=== PATIENT | female | born 1955 | race Caucasian/White ===

== ENCOUNTER 2017-05-14 00:32 | Inpatient (IN) | payer OTHER ==
[~2017-05-14] VITALS: Ht 162.6 cm; Wt 124.6 kg
[2017-05-14] VITALS (8 sets, daily range): BP systolic 131–164; BP diastolic 54–78; PULSE 74–88; RESP 16–18; TEMP 96.6–99.1; O2SAT 93–99
[2017-05-14] MEDS ORDERED: ONDANSETRON HCL 4 MG/2 ML VIAL ONE ×2 (00:56→01:28)
[2017-05-14 01:10] LABS: AUTOMATED NEUTROPHIL # 6.7 TH/MM3 (1.8-7.7); BASOPHIL # 0.1 TH/MM3 (0-0.2); BASOPHIL % 0.9 % (0.0-2.0); EOSINOPHIL # 0.2 TH/MM3 (0-0.4); EOSINOPHIL % 2.8 % (0.0-4.0); HEMATOCRIT 29.9 % (35.0-46.0); HEMO FLAGS DIFF FINAL; LYMPH % 14.3 % (9.0-44.0); LYMPHOCYTE # 1.3 TH/MM3 (1.0-4.8); MEAN CELL VOLUME 89.2 FL (80.0-100.0); MEAN CORPUSCULAR HEMOGLOBIN 28.9 PG (27.0-34.0); MEAN CORPUSCULAR HGB CONC 32.4 % (32.0-36.0); MONO % 6.6 % (0.0-8.0); NEUT % 75.4 % (16.0-70.0); PLATELET COUNT 204 TH/MM3 (150-450); RED BLOOD COUNT 3.35 MIL/MM3 (4.00-5.30); RED CELL DISTRIBUTION WIDTH 14.4 % (11.6-17.2); WHITE BLOOD COUNT 8.8 TH/MM3 (4.0-11.0)
[2017-05-14] MEDS ORDERED: ceFAZolin 2 GM PREMIX 50 ML IV STA (01:11)
[2017-05-14] MEDS ORDERED: LIDOCAINE 1%/EPINEPHrine 1:100,000 SOLN 50 ML VIAL OTHER ONE (01:15)
[2017-05-14] MEDS ORDERED: ONDANSETRON HCL 4 MG/2 ML VIAL IV PUSH ONE (01:15)
[2017-05-14] MEDS ORDERED: MISCELLANEOUS NURSING INFORMATION XX SCH (01:15)
[2017-05-14] MEDS ORDERED: SODIUM CHLORIDE 0.9% FLUSH 10 ML FLUSH IV FLUSH PRN (01:15)
[2017-05-14] MEDS ORDERED: MORPHINE SULFATE 4 MG/ML INJ IV PUSH PRN ×2 (01:15)
[2017-05-14] MEDS ORDERED: CHLORHEXIDINE GLUCONATE 2 % 1 PACK (2 CLOTHS) TOP PRN (01:15)
[2017-05-14 01:22] LABS: APTT (PATIENT) 28.2 SEC (24.3-30.1); INTERNATIONAL NORMALIZED RATIO 1.2 RATIO; PROTHROMBIN TIME - PATIENT 13.6 SEC (9.8-11.6)
[2017-05-14 01:30] LABS: I-STAT POTASSIUM 4.3 MMOL/L (3.5-4.9)
--- NOTE | 2017-05-14 02:27 | PD ---
Physical Exam Date Seen by Provider: May 14, 2017 Time Seen by Provider: 02:23 Narrative Skin: The patient has a very large gaping avulsion laceration to the left lower leg. This is just below the knee. The laceration measures approximately 14 cm. Venous bleeders has been ligated prior to my evaluation by the ER physician. Data Data Last Documented VS Vital Signs Date Time Temp Pulse Resp B/P (MAP) Pulse Ox O2 Delivery O2 Flow Rate FiO2 05/14/17 00:30 97 21 Orders Orders Ondansetron Inj (Zofran Inj) (05/14/17 00:56) I-Stat Profile (05/14/17 00:58) I-Stat Creatinine (05/14/17 00:58) Complete Blood Count With Diff (05/14/17 00:58) Prothrombin Time / Inr (Pt) (05/14/17 00:58) Act Partial Throm Time (Ptt) (05/14/17 00:58) Type And Screen (05/14/17 00:58) Iv Access Insert/Monitor (05/14/17 00:58) Ecg Monitoring (05/14/17 00:58) Oximetry (05/14/17 00:58) Oxygen Administration (05/14/17 00:58) Cefazolin 2 Gm Premix (Ancef 2 Gm Premix (05/14/17 01:11) Ondansetron Inj (Zofran Inj) (05/14/17 01:15) Lidocai-Epi 1%-1:100,000 Inj (Xylocaine- (05/14/17 01:15) Admit To Inpatient (05/14/17 ) Vital Signs (Adult) RANDI.QSHIFT (05/14/17 01:10) Intake + Output RANDI.Q8H (05/14/17 01:10) Instruction (05/14/17 01:10) Complete Blood Count With Diff (05/15/17 06:00) Basic Metabolic Panel (Bmp) (05/15/17 06:00) Sodium Chloride 0.9% Flush (Ns Flush) (05/14/17 01:15) Morphine Inj (Morphine Inj) (05/14/17 01:15) ^ Initiate Protocol (05/14/17 01:10) Instruction (05/14/17 01:10) Misc Nursing Information (05/14/17 01:15) Chlorhexidine 2% Cloth (Chlorhexidine 2% (05/14/17 01:15) Mrsa Pcr Surveillance (05/14/17 01:10) Inpatient Certification (05/14/17 ) Morphine Inj (Morphine Inj) (05/14/17 01:15) Ondansetron Inj (Zofran Inj) (05/14/17 01:28) Knee, Complete (4vws) (05/14/17 ) Admit Order (Ed Use Only) (05/14/17 ) Labs Laboratory Tests Test 05/14/17 00:50 White Blood Count 8.8 TH/MM3 Red Blood Count 3.35 MIL/MM3 Hemoglobin 9.7 GM/DL Bedside Hemoglobin 10.5 G/DL Hematocrit 29.9 % Bedside Hematocrit 31.0 % Mean Corpuscular Volume 89.2 FL Mean Corpuscular Hemoglobin 28.9 PG Mean Corpuscular Hemoglobin Concent 32.4 % Red Cell Distribution Width 14.4 % Platelet Count 204 TH/MM3 Mean Platelet Volume 9.0 FL Neutrophils (%) (Auto) 75.4 % Lymphocytes (%) (Auto) 14.3 % Monocytes (%) (Auto) 6.6 % Eosinophils (%) (Auto) 2.8 % Basophils (%) (Auto) 0.9 % Neutrophils # (Auto) 6.7 TH/MM3 Lymphocytes # (Auto) 1.3 TH/MM3 Monocytes # (Auto) 0.6 TH/MM3 Eosinophils # (Auto) 0.2 TH/MM3 Basophils # (Auto) 0.1 TH/MM3 CBC Comment DIFF FINAL Differential Comment Prothrombin Time 13.6 SEC Prothromb Time International Ratio 1.2 RATIO Activated Partial Thromboplast Time 28.2 SEC Bedside Sodium 138 MMOL/L Bedside Potassium 4.3 MMOL/L Bedside Chloride 101 MMOL/L Bedside Blood Urea Nitrogen 41 MG/DL Bedside Creatinine 1.8 MG/DL Bedside Glucose 364 MG/DL MDM Medical Record Reviewed: Yes Supervised Visit with ANNETTE: Yes Differential Diagnosis MDM: High Differential diagnoses: Fracture, sprain, strain, dislocation, contusion, neurovascular injury Narrative Course Patient's laceration is approximated in a large bulky pressure dressing was applied. Procedures Procedure Narrative LACERATION LOCATION: Left lower leg below the knee LENGTH: 16 cm NUMBER OF STITCHES/SOUMYA: 13 REPAIR: The area of the laceration was prepped with Betadine and sterilely draped. The laceration was infiltrated with 1% lidocaine with epinephrine. The wound was copiously irrigated and explored without evidence of foreign body , tendon injury or neurovascular injury. Venous bleeders or ligated with 4-0 Vicryl. The wound edges are reinforced using benzoin and Steri-Strips The wound was closed using 3-0 proline. This was a single layer repair. A sterile pressure dressing was applied. The patient was advised to keep the dressing clean and dry. Patient tolerated the procedure well. Condition: Stable Brian Tucker May 14, 2017 02:27
[2017-05-14] MEDS ORDERED: XARE15TA PO (02:40)
--- NOTE | 2017-05-14 02:50 | RADRPT ---
EXAM DATE/TIME: 05/14/2017 02:27 [place] COMPARISON: No previous studies available for comparison. INDICATIONS : Patient fell today and has laceration anteriorly to proximal tib/fib just below knee. Patient also pérez s bruising to patellar region and complains of left knee pain. MEDICAL HISTORY : None. SURGICAL HISTORY : None. ENCOUNTER: Initial ACUITY: 1 day PAIN SCORE: 3/10 LOCATION: Left Knee FINDINGS: Oblique transverse fracture seen through the mid zone of the patella. There is approximately 24 mm of separation of the fracture fragments. There is mild nondisplaced comminution of the more superior fr acture fragment. Mild lateral compartment osteoarthritis noted. There is atherosclerosis of the popliteal artery. CONCLUSION: Acute fracture of the patella as above with considerable separation of the fracture fragments. Berny Bansal MD on May 14, 2017 at 2:47 Board Certified Radiologist. This report was verified electronically.
--- NOTE | 2017-05-14 06:13 | PD ---
HPI Chief Complaint: Trauma (Alert) Time Seen by Provider: 00:44 Travel History International Travel<30 days: No Contact w/Intl Traveler<30days: No History of Present Illness HPI This is a patient who presents to the emergency department having had a fall. She tripped over a carpet and she fell her left knee twist. She felt a pop and then landed on the ground. She had a large amount of bleeding from her knee. When EMS arrived they estimated about 500 cc of blood loss. They were unable to get bleeding controlled from a wound on her leg so they applied a tourniquet and they transported her here. They estimated the tourniquet time was approximately an hour. Patient does report some moderate severity constant pain in her left knee, worse with movement, improved with rest. She did not hit her head and denies any other injuries. PFSH Past Medical History Cancer: No Cardiovascular Problems: Yes Congestive Heart Failure: Yes Diabetes: Yes (type 2) Patient Takes Glucophage: No Endocrine: Yes Genitourinary: Yes Musculoskeletal: No Neurologic: No Psychiatric: No Reproductive: No Respiratory: No ?: Not Social History Substance Use: No Allergies-Medications (Allergen,Severity, Reaction): Coded Allergies: Penicillins (Verified Allergy, Unknown, 05/14/17) tetracycline (Verified Allergy, Unknown, 05/14/17) Reported Meds & Prescriptions Reported Meds & Active Scripts Active Reported Xarelto (Rivaroxaban) 15 Mg Tab 15 Mg PO DAILY Review of Systems Except as stated in HPI: all other systems reviewed are Neg Physical Exam Narrative GENERAL:Well appearing, no acute distress SKIN: 16 cm laceration on the anterior left lower extremity distal to the knee with underlying adipose tissue. There is a small area laterally that has a bleeding arterial. HEAD: Atraumatic. Normocephalic. EYES: Pupils equal and round. No injection or drainage. ENT: Moist mucous membranes NECK: Trachea midline. CARDIOVASCULAR: Regular rate and rhythm. No murmur appreciated. RESPIRATORY: Clear to auscultation. Breath sounds equal bilaterally. GASTROINTESTINAL: Abdomen soft, non-tender, nondistended. MUSCULOSKELETAL: Large effusion of the left knee. NEUROLOGICAL: Awake and alert. No obvious cranial nerve deficits. Moving all extremities. PSYCHIATRIC: Appropriate mood and affect; insight and judgment normal. Data Data Last Documented VS Vital Signs Date Time Temp Pulse Resp B/P (MAP) Pulse Ox O2 Delivery O2 Flow Rate FiO2 05/14/17 00:30 97 21 Orders Orders Ondansetron Inj (Zofran Inj) (05/14/17 00:56) I-Stat Profile (05/14/17 00:58) I-Stat Creatinine (05/14/17 00:58) Complete Blood Count With Diff (05/14/17 00:58) Prothrombin Time / Inr (Pt) (05/14/17 00:58) Act Partial Throm Time (Ptt) (05/14/17 00:58) Type And Screen (05/14/17 00:58) Iv Access Insert/Monitor (05/14/17 00:58) Ecg Monitoring (05/14/17 00:58) Oximetry (05/14/17 00:58) Oxygen Administration (05/14/17 00:58) Cefazolin 2 Gm Premix (Ancef 2 Gm Premix (05/14/17 01:11) Ondansetron Inj (Zofran Inj) (05/14/17 01:15) Lidocai-Epi 1%-1:100,000 Inj (Xylocaine- (05/14/17 01:15) Admit To Inpatient (05/14/17 ) Vital Signs (Adult) RANDI.QSHIFT (05/14/17 01:10) Intake + Output RANDI.Q8H (05/14/17 01:10) Instruction (05/14/17 01:10) Complete Blood Count With Diff (05/15/17 06:00) Basic Metabolic Panel (Bmp) (05/15/17 06:00) Sodium Chloride 0.9% Flush (Ns Flush) (05/14/17 01:15) Morphine Inj (Morphine Inj) (05/14/17 01:15) ^ Initiate Protocol (05/14/17 01:10) Instruction (05/14/17 01:10) Misc Nursing Information (05/14/17 01:15) Chlorhexidine 2% Cloth (Chlorhexidine 2% (05/14/17 01:15) Mrsa Pcr Surveillance (05/14/17 01:10) Inpatient Certification (05/14/17 ) Morphine Inj (Morphine Inj) (05/14/17 01:15) Ondansetron Inj (Zofran Inj) (05/14/17 01:28) Knee, Complete (4vws) (05/14/17 ) Admit Order (Ed Use Only) (05/14/17 ) Labs Laboratory Tests Test 05/14/17 00:50 White Blood Count 8.8 TH/MM3 Red Blood Count 3.35 MIL/MM3 Hemoglobin 9.7 GM/DL Bedside Hemoglobin 10.5 G/DL Hematocrit 29.9 % Bedside Hematocrit 31.0 % Mean Corpuscular Volume 89.2 FL Mean Corpuscular Hemoglobin 28.9 PG Mean Corpuscular Hemoglobin Concent 32.4 % Red Cell Distribution Width 14.4 % Platelet Count 204 TH/MM3 Mean Platelet Volume 9.0 FL Neutrophils (%) (Auto) 75.4 % Lymphocytes (%) (Auto) 14.3 % Monocytes (%) (Auto) 6.6 % Eosinophils (%) (Auto) 2.8 % Basophils (%) (Auto) 0.9 % Neutrophils # (Auto) 6.7 TH/MM3 Lymphocytes # (Auto) 1.3 TH/MM3 Monocytes # (Auto) 0.6 TH/MM3 Eosinophils # (Auto) 0.2 TH/MM3 Basophils # (Auto) 0.1 TH/MM3 CBC Comment DIFF FINAL Differential Comment Prothrombin Time 13.6 SEC Prothromb Time International Ratio 1.2 RATIO Activated Partial Thromboplast Time 28.2 SEC Bedside Sodium 138 MMOL/L Bedside Potassium 4.3 MMOL/L Bedside Chloride 101 MMOL/L Bedside Blood Urea Nitrogen 41 MG/DL Bedside Creatinine 1.8 MG/DL Bedside Glucose 364 MG/DL [facility] Medical Screen Exam Complete: Yes Emergency Medical Condition: Yes Interpretation(s) Afebrile, hypertensive Anemia Renal insufficiency X-ray: Acute fracture of the patella with considerable separation or fracture fragments. Laceration anterior to the along the proximal tibia-fibula below the knee joint Differential Diagnosis Laceration, hemorrhage, patellar fracture, knee dislocation, vascular injury Narrative Course This is a patient who presents to the emergency department having had a mechanical fall twisting her left knee. She felt a pop at the time of the fall. It appears that she spontaneously fractured her patella as well as sustained a laceration anterior to the proximal tibia along the left knee. Notably don't think this is an open fracture. The laceration is distal to the patella and on examination of the laceration was fairly superficial with mostly adipose tissue exposed. Pt was given ancef given the nature of the wound. On arrival in the emergency department I took down the patient's tourniquet and I applied direct pressure to a bleeding arterial along the medial aspect of the wound. I placed a [id number] stitch with absorbable sutures which led to hemostasis. I had the physician accounts payable assistant repair the remainder of the laceration. Patient was placed in a knee immobilizer and will be placed in observation under the trauma service. Procedures Procedure Narrative LACERATION LOCATION: Left lower extremity LENGTH: 1 cm NUMBER OF STITCHES/SOUMYA: 1 REPAIR: The laceration was infiltrated with 5 cc of lidocaine. The wound was copiously irrigated and explored without evidence of foreign body, tendon injury or neurovascular injury. The wound was closed using 3-0 Vicryl. This was a single layer repair. A sterile dressing was applied. The patient was advised to keep the dressing clean and dry. Patient tolerated the procedure well. Trauma Alert - Level Two Trauma Alert Level Two: Full trauma team activate, Patient evaluated, Trauma surgeon called Time Surgeon Called: 00:25 Diagnosis Diagnosis: Primary Impression: Patellar fracture Qualified Codes: S82.092A - Other fracture of left patella, initial encounter for closed fracture Additional Impression: Laceration of leg Qualified Codes: S81.812A - Laceration without foreign body, left lower leg, initial encounter Condition: Stable Yu Alonzo MD May 14, 2017 06:13
[2017-05-14] MEDS ORDERED: DEXTROSE 50% IN WATER 50 ML VIAL(D50) IV PUSH PRN (07:30)
[2017-05-14] MEDS ORDERED: GLUCAGON 1 MG/ML VIAL OTHER PRN (07:30)
--- NOTE | 2017-05-14 07:54 | PD.ORT.PN ---
Subjective Subjective Remarks s/p fall left knee pain. takes xarelto 20mg daily for previous DVT. skin tear that was sutured in ER over left knee. Objective Vitals Vital Signs Date Time Temp Pulse Resp B/P (MAP) Pulse Ox O2 Delivery O2 Flow Rate FiO2 05/14/17 04:00 96.6 74 18 143/65 (91) 99 05/14/17 03:53 05/14/17 02:39 99 Room Air 05/14/17 02:39 99 Room Air 05/14/17 02:35 78 18 137/67 (90) 99 Room Air 05/14/17 00:30 97 21 I/O 05/13/17 05/13/17 05/13/17 05/14/17 05/14/17 05/14/17 07:00 15:00 23:00 07:00 15:00 23:00 Intake Total 50 ml Balance 50 ml Intake IV Total 50 ml # Voids 0 Result Diagram: 05/14/17 0050 Other Results Laboratory Tests Test 05/14/17 00:50 Prothromb Time International Ratio 1.2 RATIO Prothrombin Time 13.6 SEC (9.8-11.6) Imaging Last 24 hours Impressions Knee X-Ray 05/14/17 0000 Signed Impressions: Service Date/Time: Sunday, May 14, 2017 02:27 - CONCLUSION: Acute fracture of the patella as above with considerable separation of the fracture fragments. Berny Bansal MD Objective Remarks LLE: +knee brace. NVI. wound visualized. large transverse skin tear approx 2- 3in distal to patella. skin tear is approx 8cm in length. fatty tissue visualized. Assessment & Plan Assessment and Plan 1) Left Patella Fx -npo -surgery today -sign consents Anton Yeager May 14, 2017 07:54
[2017-05-14] MEDS: DOCUSATE SODIUM 50 MG/SENNA 8.6 MG TAB PO SCH ×2 (09:00→21:00)
[2017-05-14] MEDS ORDERED: ACETAMINOPHEN/HYDROcodone 325 MG/5 MG TAB PO PRN (09:00)
[2017-05-14] MEDS ORDERED: AMLO10TA2 PO (09:18)
[2017-05-14] MEDS ORDERED: LABE100T2 PO (09:18)
[2017-05-14] MEDS ORDERED: XARE20TA PO (09:22)
[2017-05-14] MEDS: INSULIN ASPART SUPPLEMENTAL SCALE SQ SCH ×4 (09:26→22:07)
[2017-05-14] MEDS: FAMOTIDINE 20 MG TAB PO SCH ×2 (09:26→21:00)
[2017-05-14] MEDS: ACETAMINOPHEN/HYDROcodone 325 MG/7.5 MG TAB PO PRN ×3 (09:35→19:56)
[2017-05-14] MEDS ORDERED: ONDANSETRON HCL 4 MG/2 ML VIAL IV PUSH PRN (10:00)
--- NOTE | 2017-05-14 10:56 | HHI.PR ---
Subjective Subjective Notes PTD: 0 Patient lying in bed. No distress noted. Patient complains of pain to left knee. Pain medications are working to control pain. Patient states "I'm okay. It was scarey. It is all my fault." Objective Vitals/I&O Vital Signs Date Time Temp Pulse Resp B/P (MAP) Pulse Ox O2 Delivery O2 Flow Rate FiO2 05/14/17 08:00 98.1 83 17 151/63 (92) 99 05/14/17 02:39 Room Air 05/14/17 00:30 21 Labs Laboratory Tests Test 05/14/17 00:50 White Blood Count 8.8 Red Blood Count 3.35 Hemoglobin 9.7 Bedside Hemoglobin 10.5 Hematocrit 29.9 Bedside Hematocrit 31.0 Mean Corpuscular Volume 89.2 Mean Corpuscular Hemoglobin 28.9 Mean Corpuscular Hemoglobin Concent 32.4 Red Cell Distribution Width 14.4 Platelet Count 204 Mean Platelet Volume 9.0 Neutrophils (%) (Auto) 75.4 Lymphocytes (%) (Auto) 14.3 Monocytes (%) (Auto) 6.6 Eosinophils (%) (Auto) 2.8 Basophils (%) (Auto) 0.9 Neutrophils # (Auto) 6.7 Lymphocytes # (Auto) 1.3 Monocytes # (Auto) 0.6 Eosinophils # (Auto) 0.2 Basophils # (Auto) 0.1 CBC Comment DIFF FINAL Differential Comment Prothrombin Time 13.6 Prothromb Time International Ratio 1.2 Activated Partial Thromboplast Time 28.2 Bedside Sodium 138 Bedside Potassium 4.3 Bedside Chloride 101 Bedside Blood Urea Nitrogen 41 Bedside Creatinine 1.8 Bedside Glucose 364 Radiology Last Impressions Knee X-Ray 05/14/17 0000 Signed Impressions: Service Date/Time: Sunday, May 14, 2017 02:27 - CONCLUSION: Acute fracture of the patella as above with considerable separation of the fracture fragments. Berny Bansal MD Narrative Exam GENERAL: This is a 62-year-old female lying in bed. No distress noted. SKIN: Warm and dry. HEAD: Atraumatic. Normocephalic. EYES: PERRLA ENT: No nasal bleeding or discharge. Mucous membranes pink and moist. NECK: Trachea midline. No JVD. CARDIOVASCULAR: Regular rate and rhythm. RESPIRATORY: No accessory muscle use. Lungs are clear to auscultation. Breath sounds equal bilaterally. No distress or dyspnea. GASTROINTESTINAL: BS + x 4 quads. Abdomen soft, non-tender, nondistended. MUSCULOSKELETAL: Extremities without cyanosis, or edema. LEFT knee dressing and CKS in place . + peripheral pulses x 4 extremities. Warm with good capillary refill and sensation. MAEW. NEUROLOGICAL: Awake and alert. Normal speech and pattern. A/P Problem List: (1) Patellar fracture ICD Codes: S82.009A - Unspecified fracture of unspecified patella, initial encounter for closed fracture Status: Acute (2) Laceration of leg ICD Codes: S81.819A - Laceration without foreign body, unspecified lower leg, initial encounter Status: Acute Assessment and Plan [place]: This is a 62-year-old female who sustained a fall. She tripped over her carpet, and twisted her knee and fell. She was bleeding profusely from her left knee. A tourniquet was applied en route. INJURIES: LEFT knee lac (henrry) LEFT patella fx PMHx: CAD, CHF, DM DVT (On xarelto) Procedures: 05/15: SX KNEE Consults: Orthopedics. Case management Diet: ADA diet. Tolerating po diet. Encourage good po intake with each meal. Pulmonary: Encourage good pulmonary toileting. IS at bedside and pt encouraged to use. Rationale for use explained to patient, and verbalized understanding. PAIN Management: [place] 5-7.5 mg q 4h. Morphine 2 mg q 3h. Activity: BR. (Knee immobilizer)PT and OT ordered. GI prophylaxis: Pepcid BID. Bowel regimen: Colace and MOM. Lactulose. LBM: 0 DVT prophylaxis: Mechanical VTE with SCDs. Chemical management with Lovenox 30 BID SQ. DC Planning: Case management consulted for assistance with final discharge disposition. Emotional support provided to patient and family at bedside and plan of care discussed. Discussed with RN at bedside. Patient is hemodynamically stable and being managed on the med/surg floor. The trauma team will round each day, and evaluate plan of care on a daily basis. LEFT knee lac (henrry) LEFT patella fx Orthopedics consulted and assisting in management and care CKS Awaiting weight bearing status form ortho Pain management PT and OT ordered Lovenox 30 mg x 1 dose tonight Plan for OR tomorrow HTN Vitals every 4 hours Resume home medications Labetalol Norvasc DM ADA diet Accuchecks AC HS SSI - medium Problem Qualifiers (1) Patellar fracture: Qualified Codes: S82.092A - Other fracture of left patella, initial encounter for closed fracture (2) Laceration of leg: Qualified Codes: S81.812A - Laceration without foreign body, left lower leg, initial encounter Muriel Sylvester May 14, 2017 10:56
[2017-05-14] MEDS ORDERED: ENOXAPARIN SODIUM 30 MG/0.3 ML SYRINGE SQ ONE (16:15)
--- NOTE | 2017-05-14 17:24 | HHI.HP ---
History of Present Illness Primary Care Physician Unknown Admission Diagnosis laceration, hematoma Diagnoses: History of Present Illness 62-year-old female on xarelto TO FOR DVT. PATIENT YESTERDAY FELL AND SUSTAINED A MID TIB-FIB open WOUND. BLEEDING WAS NOT CONTROLLED a TOURNIQUET WAS APPLIED AND PATIENT WAS BROUGHT HERE A LEVEL II TRAUMA ALERT. THE BLEEDING WAS STOPPED BY THE EM ER PHYSICIAN WITH A [id number] SUTURE AND THE OPEN WOUND WAS THEN CLOSED. FOLLOW-UP CHEST X-RAY SHOWS a PATELLA FRACTURE, the wound HOWEVER HE IS ABOUT 3 INCHES AWAY FROM THE PATELLA. At time of my exam the knee is immobilize and dressing applied ,patient is neurologically intact hemodynamically normal with good neurovascular exam. Review of Systems Constitutional: DENIES: Diaphoretic episodes, Fatigue, Fever, Weight gain, Weight loss, Chills, Dizziness, Change in appetite, Night Sweats Endocrine: DENIES: Abnorml menstrual pattern, Heat/cold intolerance, Polydipsia , Polyuria, Polyphagia Eyes: DENIES: Blurred vision, Diplopia, Eye inflammation, Eye pain, Vision loss , Photosensitivity, Double Vision Ears, nose, mouth, throat: DENIES: Tinnitus, Hearing loss, Vertigo, Nasal discharge, Oral lesions, Throat pain, Hoarseness, Ear Pain, Running Nose, Epistaxis, Sinus Pain, Toothache, Odynophagia Respiratory: DENIES: Apneas, Cough, Snoring, Wheezing, Hemoptysis, Sputum production, Shortness of breath Gastrointestinal: DENIES: Abdominal pain, Black stools, Bloody stools, Constipation, Diarrhea, Nausea, Vomiting, Difficulty Swallowing, Anorexia Genitourinary: DENIES: Abnormal vaginal bleeding, Dysmenorrhea, Dyspareunia, Sexual dysfunction, Urinary frequency, Urinary incontinence, Urgency, Hematuria , Dysuria, Nocturia, Vaginal discharge Musculoskeletal: DENIES: Joint pain, Muscle aches, Stiffness, Joint Swelling, Back pain, Neck pain Integumentary: COMPLAINS OF: Abnormal pigmentation, Pruritus, Rash, Nail changes, Breast masses, Breast skin changes, Nipple discharge Immunologic/allergic: DENIES: Eczema, Urticaria Psychiatric: DENIES: Anxiety, Confusion, Mood changes, Depression, Hallucinations, Agitation, Suicidal Ideation, Homicidal Ideation, Delusions Past Family Social History Allergies: Coded Allergies: Penicillins (Verified Allergy, Unknown, 05/14/17) tetracycline (Verified Allergy, Unknown, 05/14/17) Past Medical History DVT, diabetes Past Surgical History none Family History none Social History no drugs Physical Exam Vital Signs Vital Signs Date Time Temp Pulse Resp B/P (MAP) Pulse Ox O2 Delivery O2 Flow Rate FiO2 05/14/17 16:00 98.8 86 18 146/54 (84) 93 05/14/17 12:00 98.7 83 17 139/59 (85) 96 05/14/17 08:00 98.1 83 17 151/63 (92) 99 05/14/17 04:00 96.6 74 18 143/65 (91) 99 05/14/17 03:53 05/14/17 02:39 99 Room Air 05/14/17 02:39 99 Room Air 05/14/17 02:35 78 18 137/67 (90) 99 Room Air 05/14/17 00:30 97 21 Physical Exam GENERAL: This is a well-nourished, well-developed patient, in no apparent distress. SKIN: No rashes, ecchymoses or lesions. Cool and dry. HEAD: Atraumatic. Normocephalic. No temporal or scalp tenderness. EYES: Pupils equal round and reactive. ENT: Nose without bleeding, Airway patent. NECK: Trachea midline. No JVD or lymphadenopathy. Supple, nontender, no meningeal signs. CARDIOVASCULAR: Regular rate and rhythm without murmurs, gallops, or rubs. RESPIRATORY: Clear to auscultation. Breath sounds equal bilaterally. No wheezes , rales, or rhonchi. GASTROINTESTINAL: Abdomen soft, non-tender, No guarding. MUSCULOSKELETAL: left tib fib open wound- NEUROLOGICAL: Awake and alert. Cranial nerves II through XII intact. Motor and sensory grossly within normal limits. Five out of 5 muscle strength in all muscle groups. Normal speech. Laboratory Laboratory Tests Test 05/14/17 00:50 White Blood Count 8.8 Red Blood Count 3.35 Hemoglobin 9.7 Bedside Hemoglobin 10.5 Hematocrit 29.9 Bedside Hematocrit 31.0 Mean Corpuscular Volume 89.2 Mean Corpuscular Hemoglobin 28.9 Mean Corpuscular Hemoglobin Concent 32.4 Red Cell Distribution Width 14.4 Platelet Count 204 Mean Platelet Volume 9.0 Neutrophils (%) (Auto) 75.4 Lymphocytes (%) (Auto) 14.3 Monocytes (%) (Auto) 6.6 Eosinophils (%) (Auto) 2.8 Basophils (%) (Auto) 0.9 Neutrophils # (Auto) 6.7 Lymphocytes # (Auto) 1.3 Monocytes # (Auto) 0.6 Eosinophils # (Auto) 0.2 Basophils # (Auto) 0.1 CBC Comment DIFF FINAL Differential Comment Prothrombin Time 13.6 Prothromb Time International Ratio 1.2 Activated Partial Thromboplast Time 28.2 Bedside Sodium 138 Bedside Potassium 4.3 Bedside Chloride 101 Bedside Blood Urea Nitrogen 41 Bedside Creatinine 1.8 Bedside Glucose 364 Result Diagram: 05/14/17 0050 Caprini VTE Risk Assessment Caprini VTE Risk Assessment: No/Low Risk (score <= 1) Caprini Risk Assessment Model Point Value = 1 Point Value = 2 Point Value = 3 Point Value = 5 Age 41-60 Minor surgery BMI > 25 kg/m2 Swollen legs Varicose veins or History of unexplained or recurrent spontaneous Oral contraceptives or hormone replacement Sepsis (< 1 month) Serious lung disease, including pneumonia (< 1 month) Abnormal pulmonary function Acute myocardial infarction Congestive heart failure (< 1 month) History of inflammatory bowel disease Medical patient at bed rest Age 61-74 Arthroscopic surgery Major open surgery (> 45 min) Laparoscopic surgery (> 45 min) Malignancy Confined to bed (> 72 hours) Immobilizing plaster cast Central venous access Age >= 75 History of VTE Family history of VTE Factor V Leiden Prothrombin [id number] Lupus anticoagulant Anticardiolipin antibodies Elevated serum homocysteine Heparin-induced thrombocytopenia Other congenital or acquired thrombophilia Stroke (< 1 month) Elective arthroplasty Hip, pelvis, or leg fracture Acute spinal cord injury (< 1 month) Prophylaxis Regimen Total Risk Factor Score Risk Level Prophylaxis Regimen 0-1 Low Early ambulation 2 Moderate Order ONE of the following: *Sequential Compression Device (SCD) *Heparin 5000 units SQ BID 3-4 Higher Order ONE of the following medications: *Heparin 5000 units SQ TID *Enoxaparin/Lovenox 40 mg SQ daily (WT < 150 kg, CrCl > 30 mL/min) *Enoxaparin/Lovenox 30 mg SQ daily (WT < 150 kg, CrCl > 10-29 mL/min) *Enoxaparin/Lovenox 30 mg SQ BID (WT < 150 kg, CrCl > 30 mL/min) AND/OR *Sequential Compression Device (SCD) 5 or more Highest Order ONE of the following medications: *Heparin 5000 units SQ TID (Preferred with Epidurals) *Enoxaparin/Lovenox 40 mg SQ daily (WT < 150 kg, CrCl > 30 mL/min) *Enoxaparin/Lovenox 30 mg SQ daily (WT < 150 kg, CrCl > 10-29 mL/min) *Enoxaparin/Lovenox 30 mg SQ BID (WT < 150 kg, CrCl > 30 mL/min) AND *Sequential Compression Device (SCD) Assessment and Plan Assessment and Plan Patellar fracture left Open wound left tib-fib Admitted to [facility] Pain control DVT prophylaxis hold xarelto Ortho input appreciated Devi Vivas MD May 14, 2017 17:24
[2017-05-14] MEDS: MAGNESIUM HYDROXIDE SUSP 30 ML CUP PO SCH (21:00)
[2017-05-14] MEDS: LABETALOL HCL 100 MG TAB PO SCH (22:07)
[2017-05-15 00:25] VITALS: BP 104/49; PULSE 79; RESP 16; TEMP 99; O2SAT 93
[2017-05-15] MEDS ORDERED: LACTATED RINGER'S 1000 ML IV PRN (00:45)
[2017-05-15 04:00] VITALS: BP 146/60; PULSE 87; RESP 16; TEMP 98.6; O2SAT 93
[2017-05-15 05:14] LABS: AUTOMATED NEUTROPHIL # 7.6 TH/MM3 (1.8-7.7); BASOPHIL # 0.1 TH/MM3 (0-0.2); BASOPHIL % 0.5 % (0.0-2.0); EOSINOPHIL # 0.2 TH/MM3 (0-0.4); EOSINOPHIL % 1.7 % (0.0-4.0); HEMATOCRIT 26.8 % (35.0-46.0); HEMO FLAGS DIFF FINAL; LYMPH % 12.1 % (9.0-44.0); LYMPHOCYTE # 1.2 TH/MM3 (1.0-4.8); MEAN CELL VOLUME 89.1 FL (80.0-100.0); MEAN CORPUSCULAR HEMOGLOBIN 29.3 PG (27.0-34.0); MEAN CORPUSCULAR HGB CONC 32.9 % (32.0-36.0); MONO % 8.7 % (0.0-8.0); PLATELET COUNT 169 TH/MM3 (150-450); RED BLOOD COUNT 3.01 MIL/MM3 (4.00-5.30); RED CELL DISTRIBUTION WIDTH 14.7 % (11.6-17.2); WHITE BLOOD COUNT 9.9 TH/MM3 (4.0-11.0)
[2017-05-15 05:36] LABS: BICARBONATE 23.4 MEQ/L (21.0-32.0); POTASSIUM 5.5 MEQ/L (3.5-5.1)
[2017-05-15] MEDS: ACETAMINOPHEN/HYDROcodone 325 MG/7.5 MG TAB PO PRN ×4 (06:48→22:03)
[2017-05-15] MEDS ORDERED: VANCOMYCIN HCL 1000 MG VIAL ONE (07:43)
[2017-05-15] MEDS ORDERED: ceFAZolin 2 GM PREMIX 50 ML ONE (07:44)
[2017-05-15] MEDS ORDERED: GENTAMICIN SULFATE 80 MG/2 ML VIAL ONE (07:44)
[2017-05-15] MEDS: INSULIN ASPART SUPPLEMENTAL SCALE SQ SCH ×4 (07:48→20:24)
[2017-05-15] MEDS: FAMOTIDINE 20 MG TAB PO SCH ×2 (07:49→20:19)
[2017-05-15] MEDS: LACTULOSE SYRUP 20 GM/30 ML CUP PO SCH (07:49)
[2017-05-15] MEDS: DOCUSATE SODIUM 50 MG/SENNA 8.6 MG TAB PO SCH ×2 (07:49→20:20)
[2017-05-15] MEDS: LABETALOL HCL 100 MG TAB PO SCH ×2 (07:50→20:19)
[2017-05-15] MEDS ORDERED: BACITRACIN OPHT OINT 3.5 GM TUBO ONE (09:29)
[2017-05-15] MEDS ORDERED: BACITRACIN TOP OINT 15 GM TUBE ONE (09:29)
--- NOTE | 2017-05-15 09:42 | PD.OP ---
cc: Ralf Chu MD Operative Report Date of Surgery: May 15, 2017 Preoperative Diagnosis: Displaced left patella fracture Postoperative Diagnosis: Procedure: Open reduction internal fixation left patella Anesthesia: Gen. Surgeon: Ralf Chu Layout Mechanic(s): LAY Javed PA-C The surgical procedure was assisted by my physician tmd teacher assistant. My P.A. presence was necessary throughout this case for the manipulation and positioning of the surgical extremity. My P.A. was assisting me throughout the duration of this procedure. The skill set of a physician tmd teacher assistant was medically necessary to complete this procedure. During the surgical case the surgical services assistant was working at the back table and the physician tmd teacher assistant was directly assisting me. Operation and Findings: Plan of activity: Partial weightbearing up to 50 pounds with knee immobilizer, no leg lifts or quad sets Carolyn had an injury resulting in displaced left patella fracture. Informed consent was confirmed preoperatively and informed consent was obtained. I had a detailed discussion with the patient regarding the risks and benefits of surgery. Patient was brought to the operating room and placed on the OR table. IV sedation and GETA were administered by anesthesiologist and IV antibiotics were given prior to incision. A timeout procedure was performed. The operative leg was prepped with alcohol followed by Hibiclens and draped in the usual sterile fashion. The procedure began with a 4-inch incision over the anterior knee. The incision was kept proximal to the skin tear. Subcutaneous tissue was dissected with Bovie. At this point the fracture site was visualized. Fracture was now cleaned with curettes. At this point attention was turned to reduction. The inferior pole of the patella was reduced to the superior pole of the patella. Fracture keyed into anatomic alignment. Multiplanar fluoroscopy confirmed excellent alignment of fracture. 3 guide pins for the Synthes 4.0 cannulated screws were now placed from inferior to superior. Fluoroscopy was used to confirm appropriate guidepin placement. Screw lengths were measured. Cannulated drill was now placed over the guide pins. Appropriate length screws were now placed, good compression was applied. An 18 gauge wire was now passed through the cannulated screws in a [id number] fashion. A tension band type construct was now created. The wires were tensioned appropriately. Fluoroscopy confirmed well-placed hardware with well-aligned fracture. Additional #5 FiberWire suture were placed in a cerclage fashion around the patella. The retinaculum was now closed with #1 Vicryl, subcutaneous tissue was closed with 3-0 Vicryl and skin was closed with henrry. Sterile dressings were applied. The patient was transferred to recovery in stable condition. She was placed into a knee immobilizer. Ralf Chu MD May 15, 2017 09:42
[2017-05-15] MEDS ORDERED: Post-op Orders (for Pharmacy) MISC XX ONE (09:45)
[2017-05-15] MEDS ORDERED: diphenhydrAMINE HCL 25 MG CAP PO PRN (09:45)
[2017-05-15] MEDS ORDERED: MORPHINE SULFATE 4 MG/ML INJ IV PUSH PRN (09:45)
[2017-05-15] MEDS ORDERED: SODIUM CHLORIDE 0.9% FLUSH 5 ML FLUSH IVF PRN (09:45)
--- NOTE | 2017-05-15 09:45 | MB ---
cc: DELILAH VIVAS MD, TODD DATE OF CONSULTATION: 05/15/2017 REASON FOR CONSULTATION: Left patellar fracture. CONSULTING PHYSICIAN Dr. Vivas. HISTORY She is a 62-year-old female who had a fall. She landed on her left side. She presented emergency room. She was found to have a displaced left patella fracture. She also had a significant skin tear along her proximal tibia. She has been admitted for treatment of these injuries. She is currently awake and alert on the seventh floor. She underwent closure of the left leg wound in the emergency department. She is currently awake and alert. Her main complaint is her left leg. Pain is worse with movement improved with rest. PAST MEDICAL HISTORY ALLERGIES PENICILLIN TETRACYCLINE PAST MEDICAL HISTORY: DEEP VENOUS THROMBOSIS DIABETES. PAST SURGICAL HISTORY: None. MEDICATIONS Please see EMR for Complete list of medications. She has been on Xarelto for history of left leg DVT. SOCIAL HISTORY The patient denies alcohol, tobacco or drug use. FAMILY HISTORY: Noncontributory. REVIEW OF SYSTEMS The patient denies headache, visual changes, neck pain, chest pain, shortness of breath, abdominal pain, nausea or recent weight loss, fevers or chills or numbness or tingling of extremities. She complains of left leg pain, left knee has some swelling, and bruising. She does have left knee pain. Pain is worse with movement. PHYSICAL EXAMINATION IN GENERAL: The patient is a pleasant 62-year female in no acute distress. She is awake and alert. She is alert and x3. She is well-developed, well-nourished. She is moderately overweight. VITAL SIGNS: Temperature 98.6 Pulse 87, respirations 16, blood pressure 146/60, O2 sat 93% on room air. HEAD, EYES, EARS, NOSE, AND THROAT: Head: The patient is normocephalic. Pupils are equal. NECK: Soft, nontender. Trachea is midline. ABDOMEN: Soft, nontender, nondistended. EXTREMITIES: Examination of bilateral upper extremities reveals no pain with shoulder, elbow or wrist motion. She has intact sensation all fingers. She has good cap refill fingers. She has +5 leaf sorter strength. Skin is intact both hands. Examination of right leg reveals no pain with hip, knee or ankle motion. Skin is intact. Dorsalis pedis pulses palpable. Sensation is intact. Examination of her left leg reveals no tenderness on her hip. Examination of her knee reveals mild swelling. There is some bruising around the kneecap. There is a palpable step-off along the patella fracture. There is a skin tear on the anterolateral tibia. The skin tears approximately 3 inches below the inferior pole patella. Calf and compartment are soft. Sensation is intact in left foot. She has good cap refill is toes. X-RAYS X-rays of left knee were reviewed x-rays reveal a displaced patella fracture. IMPRESSION 1. Left leg skin tear. 2. Displaced left patella fracture. 3. History of deep venous thrombosis. 4. Diabetes. PLAN The treatment options were discussed with the patient. At this point I would recommend open reduction, internal fixation of left patella. Risks of surgery include bleeding, infection, injury to blood vessels, wound complications, painful hardware, knee stiffness, loss of motion as well as medical complications including blood clot, stroke, heart attack and . All questions were answered. I explained that she will need a very careful with her left leg after surgery year. She can disrupt the repair. All questions were answered. I will plan on surgery today. A mid-level provider in my office (nurse practitioner or physician tv production assistant) may see this patient on follow-up visits and continue to implement the objectives of this plan including: Starting or adjusting medications, injections , cast application, orthotics, brace application, physical therapy, radiological studies (including x-ray, MRI, CT, ultrasound, bone scan), vascular studies, neurologic studies, specialist consultation, and proceeding with surgical management, as appropriate. MD MARY JANE Clark/ruthie /8:14 AM /9:34 AM NASRA
[2017-05-15] MEDS ORDERED: LACTATED RINGER'S 1000 ML INJ 1,000 ML IV SCH (10:00)
--- NOTE | 2017-05-15 10:19 | HHI.PR ---
Subjective Subjective Notes PTD: 2 1000: In OR 1100: In OR. 1200: IN OR. 1400: Sleeping Objective Vitals/I&O Vital Signs Date Time Temp Pulse Resp B/P (MAP) Pulse Ox O2 Delivery O2 Flow Rate FiO2 05/15/17 04:00 98.6 87 16 146/60 (88) 93 05/14/17 02:39 Room Air 05/14/17 00:30 21 Labs Laboratory Tests Test 05/15/17 04:59 White Blood Count 9.9 Red Blood Count 3.01 Hemoglobin 8.8 Hematocrit 26.8 Mean Corpuscular Volume 89.1 Mean Corpuscular Hemoglobin 29.3 Mean Corpuscular Hemoglobin Concent 32.9 Red Cell Distribution Width 14.7 Platelet Count 169 Mean Platelet Volume 9.0 Neutrophils (%) (Auto) 77.0 Lymphocytes (%) (Auto) 12.1 Monocytes (%) (Auto) 8.7 Eosinophils (%) (Auto) 1.7 Basophils (%) (Auto) 0.5 Neutrophils # (Auto) 7.6 Lymphocytes # (Auto) 1.2 Monocytes # (Auto) 0.9 Eosinophils # (Auto) 0.2 Basophils # (Auto) 0.1 CBC Comment DIFF FINAL Differential Comment Blood Urea Nitrogen 57 Creatinine 2.85 Random Glucose 236 Calcium Level 8.3 Sodium Level 138 Potassium Level 5.5 Chloride Level 107 Carbon Dioxide Level 23.4 Anion Gap 8 Estimat Glomerular Filtration Rate 17 Radiology Last Impressions Knee X-Ray 05/14/17 0000 Signed Impressions: Service Date/Time: Sunday, May 14, 2017 02:27 - CONCLUSION: Acute fracture of the patella as above with considerable separation of the fracture fragments. Berny Bansal MD Narrative Exam GENERAL: This is a 62-year-old female lying in bed, asleep. No distress noted. SKIN: Warm and dry. HEAD: Atraumatic. Normocephalic. EYES: PERRLA ENT: No nasal bleeding or discharge. Mucous membranes pink and moist. NECK: Trachea midline. No JVD. CARDIOVASCULAR: Regular rate and rhythm. RESPIRATORY: No accessory muscle use. Lungs are clear to auscultation. Breath sounds equal bilaterally. No distress or dyspnea. GASTROINTESTINAL: BS + x 4 quads. Abdomen soft, non-tender, nondistended. MUSCULOSKELETAL: Extremities without cyanosis, or edema. LEFT knee dressing and CKS in place . + peripheral pulses x 4 extremities. Warm with good capillary refill and sensation. MAEW. NEUROLOGICAL: Asleep. A/P Problem List: (1) Patellar fracture ICD Codes: S82.009A - Unspecified fracture of unspecified patella, initial encounter for closed fracture Status: Acute (2) Laceration of leg ICD Codes: S81.819A - Laceration without foreign body, unspecified lower leg, initial encounter Status: Acute Assessment and Plan [place]: This is a 62-year-old female who sustained a fall. She tripped over her carpet, and twisted her knee and fell. She was bleeding profusely from her left knee. A tourniquet was applied en route. INJURIES: LEFT knee lac (henrry) LEFT patella fx PMHx: CAD, CHF, DM DVT (On xarelto) Procedures: 05/15: ORIF LEFT patella Consults: Orthopedics. Case management Diet: ADA diet. Tolerating po diet. Encourage good po intake with each meal. Pulmonary: Encourage good pulmonary toileting. IS at bedside and pt encouraged to use. Rationale for use explained to patient, and verbalized understanding. Elevated BUN/creat = 57 / 2.85. Normal saline 1 L bolus 1. Normal saline at 125 mL/HR Follow-up labs in the morning. PAIN Management: Cossayuna 7.5 mg q 3h. Morphine 4 mg q 3h. Activity: OOB. PT and OT ordered. (PWB 50lbs LLE) CKS at all times. GI prophylaxis: Pepcid BID. Bowel regimen: Colace and MOM. Lactulose. LBM: 0 DVT prophylaxis: Mechanical VTE with SCDs. Chemical management with Lovenox 30 BID SQ. DC Planning: Case management consulted for assistance with final discharge disposition. Emotional support provided to patient and family at bedside and plan of care discussed. Discussed with RN at bedside. Patient is hemodynamically stable and being managed on the med/surg floor. The trauma team will round each day, and evaluate plan of care on a daily basis. LEFT knee lac (henrry) LEFT patella fx Orthopedics consulted and assisting in management and care 05/15: ORIF LEFT patella PWB 50 lbs LLE CKS at all times. Pain management PT and OT ordered IV antibiotics per orthopedics Collaborate with orthopedics on when she can return to taking her Xarelto. HTN Vitals every 4 hours Resume home medications Labetalol Norvasc DM ADA diet Accuchecks AC HS SSI - medium Problem Qualifiers (1) Patellar fracture: Qualified Codes: S82.092A - Other fracture of left patella, initial encounter for closed fracture (2) Laceration of leg: Qualified Codes: S81.812A - Laceration without foreign body, left lower leg, initial encounter Muriel Sylvester May 15, 2017 10:19
[2017-05-15] MEDS ORDERED: *ONDANSETRON 4 MG VIAL PERIprocedural Use ONLY ONE (10:52)
[2017-05-15 12:00] VITALS: BP 161/55; PULSE 87; RESP 17; TEMP 96.3; O2SAT 94
[2017-05-15] MEDS ORDERED: SODIUM CHLOR 0.9% 1000 ML INJ 1,000 ML IV ONE (12:45)
[2017-05-15] MEDS: CALCIUM/VITAMIN D 250 MG/125 U TAB PO SCH ×2 (13:04→17:11)
--- NOTE | 2017-05-15 15:08 | RADRPT ---
EXAM DATE/TIME: 05/15/2017 09:24 [facility] COMPARISON: KNEE LEFT COMPLETE (4VWS), May 14, 2017, 2:27. INDICATIONS : Open reduction left patella. MEDICAL HISTORY : None. SURGICAL HISTORY : None. ENCOUNTER: Subsequent ACUITY: 2 days PAIN SCORE: Non-responsive. LOCATION: Left lateral FINDINGS: Multiple cone-down views of the knee were obtained using a matrix camera and demonstrate interval pos tsurgical changes status post open rigid internal fixation of the patella fracture. There are 3 surgi johan screws and wires transfixing the fracture and the fracture fragments are now in anatomic alignmen t. There is overlying soft tissue swelling. CONCLUSION: Status post open rigid internal fixation. Jarett Dalton MD on May 15, 2017 at 15:04 Board Certified Radiologist. This report was verified electronically.
[2017-05-15 16:00] VITALS: BP 153/70; PULSE 90; RESP 17; TEMP 97.3; O2SAT 100
[2017-05-15] MEDS: SODIUM CHLOR 0.9% 1000 ML INJ 1,000 ML IV SCH ×2 (16:45→20:18)
[2017-05-15] MEDS: ceFAZolin 2 GM PREMIX 50 ML IV SCH ×2 (17:12→23:27)
[2017-05-15 20:00] VITALS: BP 161/55; PULSE 92; RESP 18; TEMP 97.4; O2SAT 99
[2017-05-15] MEDS: MAGNESIUM HYDROXIDE SUSP 30 ML CUP PO SCH (20:20)
[2017-05-15] MEDS: VANCOMYCIN INJ 1,000 MG in SODIUM CHLOR 0.9% 250 ML INJ 250 ML IV SCH (20:20)
[2017-05-15] MEDS: SODIUM CHLORIDE 0.9% FLUSH 5 ML FLUSH IVF SCH (20:20)
[2017-05-15] MEDS ORDERED: RIVAROXABAN 10 MG TAB PO SCH (22:00)
[2017-05-16] VITALS: BP 168/70; PULSE 90; RESP 18; TEMP 97.8; O2SAT 98
[2017-05-16] MEDS: SODIUM CHLOR 0.9% 1000 ML INJ 1,000 ML IV SCH ×3 (03:00→19:08)
[2017-05-16 04:00] VITALS: BP 152/66; PULSE 87; RESP 18; TEMP 97.5; O2SAT 98
[2017-05-16 05:44] LABS: AUTOMATED NEUTROPHIL # 13.5 TH/MM3 (1.8-7.7); BASOPHIL # 0.1 TH/MM3 (0-0.2); BASOPHIL % 0.5 % (0.0-2.0); HEMATOCRIT 23.4 % (35.0-46.0); HEMO FLAGS DIFF FINAL; LYMPHOCYTE # 0.6 TH/MM3 (1.0-4.8); MEAN CELL VOLUME 88.7 FL (80.0-100.0); MEAN CORPUSCULAR HEMOGLOBIN 28.6 PG (27.0-34.0); MEAN CORPUSCULAR HGB CONC 32.3 % (32.0-36.0); MONO % 6.9 % (0.0-8.0); NEUT % 88.6 % (16.0-70.0); PLATELET COUNT 164 TH/MM3 (150-450); RED BLOOD COUNT 2.64 MIL/MM3 (4.00-5.30); RED CELL DISTRIBUTION WIDTH 14.5 % (11.6-17.2); WHITE BLOOD COUNT 15.3 TH/MM3 (4.0-11.0)
[2017-05-16 06:17] LABS: ANION GAP 9 MEQ/L (5-15); AST (GOT) 11 U/L (15-37); BICARBONATE 21.2 MEQ/L (21.0-32.0); BLOOD UREA NITROGEN 51 MG/DL (7-18); CHLORIDE 108 MEQ/L (98-107); GLOMERULAR FILTRATION RATE 22 ML/MIN (>89); POTASSIUM 5.6 MEQ/L (3.5-5.1); SODIUM (NA) 138 MEQ/L (136-145)
[2017-05-16 06:18] LABS: ALT (GPT) 8 U/L (10-53)
[2017-05-16 06:20] LABS: ALKALINE PHOSPHATASE 73 U/L (45-117); TOTAL BILIRUBIN ADULT 0.2 MG/DL (0.2-1.0)
[2017-05-16] MEDS ORDERED: VITA2000 PO (06:51)
[2017-05-16] MEDS ORDERED: HYDR-3580 PO (06:51)
[2017-05-16] MEDS ORDERED: WHEEMIS3 (06:51)
[2017-05-16] MEDS ORDERED: CALCTAB19 PO (06:51)
[2017-05-16] MEDS ORDERED: ERGO1CAP30 PO (06:51)
[2017-05-16] MEDS ORDERED: WALKER/ADULT/FO1 MIS (06:51)
--- NOTE | 2017-05-16 06:52 | HHI.FF ---
Face to Face Verification Diagnosis: (1) Patellar fracture Physical Therapy Gait training, Wheelchair training Knee: Knee fracture, Protocol: Left Canvas Knee Splint: At all times Left LE Weight Bearing: Toe Touch WB (up to 50lbs of weight on leg), No Strengthening, No Quad Sets Left LE Range of Motion: No ROM Nursing Dressing Changes: Daily dressing change, Sukh wrap (need bacitracin/addaptik over traumatic wound of leg), 4x4s, Xeroform I have seen patient Carolyn Brown on 05/16/17. My clinical findings support the need for the requested home health care services because: Ltd mobility - disease progression I certify that my clinical findings support that this patient is homebound because: Post-op weakness Anton Yeager May 16, 2017 06:52
--- NOTE | 2017-05-16 07:13 | PD.ORT.PN ---
Subjective Subjective Remarks POD 1 s/p ORIF left patella s/p skin tears left leg doing well. reports pain controlled. states no complaints. Objective Vitals Vital Signs Date Time Temp Pulse Resp B/P (MAP) Pulse Ox O2 Delivery O2 Flow Rate FiO2 05/16/17 04:00 97.5 87 18 152/66 (94) 98 05/16/17 00:00 97.8 90 18 168/70 (102) 98 05/15/17 23:03 18 05/15/17 20:00 97.4 92 18 161/55 (90) 99 05/15/17 16:00 97.3 90 17 153/70 (97) 100 05/15/17 12:00 96.3 87 17 161/55 (90) 94 05/15/17 11:08 98.0 84 20 158/70 (99) 95 Nasal Cannula 2 05/15/17 10:45 84 20 158/70 (99) 95 Nasal Cannula 2 05/15/17 10:30 83 20 162/70 (100) 94 Nasal Cannula 2 05/15/17 10:15 83 20 165/72 (103) 94 Nasal Cannula 2 05/15/17 10:01 98.0 83 20 163/70 (101) 93 Nasal Cannula 2 I/O 05/15/17 05/15/17 05/15/17 05/16/17 05/16/17 05/16/17 07:00 15:00 23:00 07:00 15:00 23:00 Intake Total 1500 ml 2420 ml 1370 ml Output Total 25 ml 575 ml Balance 1475 ml 2420 ml 795 ml Intake Oral 120 ml 320 ml IV Total 1500 ml 2300 ml 1050 ml Output Urine Total 575 ml Estimated Blood Loss 25 ml # Voids 0 2 # Bowel Movements 0 0 Result Diagram: 05/16/17 0533 05/16/17 0533 Imaging Last 24 hours Impressions Knee X-Ray 05/14/17 0000 Signed Impressions: Service Date/Time: Sunday, May 14, 2017 02:27 - CONCLUSION: Acute fracture of the patella as above with considerable separation of the fracture fragments. Berny Bansal MD Objective Remarks LLE: +knee brace. NVI. dressings clean and dry. intact. good dorsiflexion. compartments soft Assessment & Plan Assessment and Plan 1) Left Patella Fx s/p ORIF - POD 1 -PWB up to 50lbs -knee brace at all times -daily dressing changes beginning POD 2. xereform/4x4 to surgical wound. Bacitracin/adaptik to skin tear -no quad sets, leg lifts, strengthening -no ROM -work with PT today. will plan for DC home with [facility] if safe with PT. otherwise, will look at rehab options. -f/u with [facility] or [facility] in 2 weeks Anton Yeager May 16, 2017 07:12
[2017-05-16] MEDS: ACETAMINOPHEN/HYDROcodone 325 MG/7.5 MG TAB PO PRN ×4 (07:19→20:28)
[2017-05-16 08:00] VITALS: BP 149/60; PULSE 87; RESP 18; TEMP 98.5; O2SAT 97
[2017-05-16] MEDS: FAMOTIDINE 20 MG TAB PO SCH ×2 (08:25→19:08)
[2017-05-16] MEDS: LABETALOL HCL 100 MG TAB PO SCH ×2 (08:25→19:07)
[2017-05-16] MEDS: CALCIUM/VITAMIN D 250 MG/125 U TAB PO SCH ×3 (08:25→17:33)
[2017-05-16] MEDS: RIVAROXABAN 20 MG TAB PO SCH (08:25)
[2017-05-16] MEDS: ceFAZolin 2 GM PREMIX 50 ML IV SCH (08:26)
[2017-05-16] MEDS: DOCUSATE SODIUM 50 MG/SENNA 8.6 MG TAB PO SCH ×2 (08:26→19:07)
[2017-05-16] MEDS: LACTULOSE SYRUP 20 GM/30 ML CUP PO SCH (08:27)
[2017-05-16] MEDS: SODIUM CHLORIDE 0.9% FLUSH 5 ML FLUSH IVF SCH ×2 (09:00→19:08)
[2017-05-16] MEDS: VANCOMYCIN INJ 1,000 MG in SODIUM CHLOR 0.9% 250 ML INJ 250 ML IV SCH (09:34)
[2017-05-16] MEDS: INSULIN ASPART SUPPLEMENTAL SCALE SQ SCH ×4 (09:35→19:11)
[2017-05-16 12:00] VITALS: BP 149/52; PULSE 86; RESP 18; TEMP 96.6; O2SAT 98
--- NOTE | 2017-05-16 12:15 | HHI.PR ---
Subjective Subjective Notes PTD: 3 Patient sitting up in bed. No distress noted. Discussed diabetes history and renal history. Patient made us aware of her home insulin schedule. Objective Vitals/I&O Vital Signs Date Time Temp Pulse Resp B/P (MAP) Pulse Ox O2 Delivery O2 Flow Rate FiO2 05/16/17 08:00 98.5 87 18 149/60 (89) 97 05/15/17 11:08 Nasal Cannula 2 05/14/17 00:30 21 Labs Laboratory Tests Test 05/16/17 05:33 White Blood Count 15.3 Red Blood Count 2.64 Hemoglobin 7.6 Hematocrit 23.4 Mean Corpuscular Volume 88.7 Mean Corpuscular Hemoglobin 28.6 Mean Corpuscular Hemoglobin Concent 32.3 Red Cell Distribution Width 14.5 Platelet Count 164 Mean Platelet Volume 8.9 Neutrophils (%) (Auto) 88.6 Lymphocytes (%) (Auto) 4.0 Monocytes (%) (Auto) 6.9 Eosinophils (%) (Auto) 0.0 Basophils (%) (Auto) 0.5 Neutrophils # (Auto) 13.5 Lymphocytes # (Auto) 0.6 Monocytes # (Auto) 1.0 Eosinophils # (Auto) 0.0 Basophils # (Auto) 0.1 CBC Comment DIFF FINAL Differential Comment Blood Urea Nitrogen 51 Creatinine 2.25 Random Glucose 260 Total Protein 5.7 Albumin 2.4 Calcium Level 8.3 Alkaline Phosphatase 73 Aspartate Amino Transf (AST/SGOT) 11 Alanine Aminotransferase (ALT/SGPT) 8 Total Bilirubin 0.2 Sodium Level 138 Potassium Level 5.6 Chloride Level 108 Carbon Dioxide Level 21.2 Anion Gap 9 Estimat Glomerular Filtration Rate 22 Radiology Last Impressions Knee X-Ray 05/14/17 0000 Signed Impressions: Service Date/Time: Sunday, May 14, 2017 02:27 - CONCLUSION: Acute fracture of the patella as above with considerable separation of the fracture fragments. Berny Bansal MD Narrative Exam GENERAL: This is a 62-year-old female lying in bed. No distress noted. SKIN: Warm and dry. HEAD: Atraumatic. Normocephalic. EYES: PERRLA ENT: No nasal bleeding or discharge. Mucous membranes pink and moist. NECK: Trachea midline. No JVD. CARDIOVASCULAR: Regular rate and rhythm. RESPIRATORY: No accessory muscle use. Lungs are clear to auscultation. Breath sounds equal bilaterally. No distress or dyspnea. GASTROINTESTINAL: BS + x 4 quads. Abdomen soft, non-tender, nondistended. MUSCULOSKELETAL: Extremities without cyanosis, or edema. LEFT knee dressing and CKS in place . + peripheral pulses x 4 extremities. Warm with good capillary refill and sensation. MAEW. NEUROLOGICAL: Awake and alert. Normal speech and pattern. A/P Problem List: (1) Patellar fracture ICD Codes: S82.009A - Unspecified fracture of unspecified patella, initial encounter for closed fracture Status: Acute (2) Laceration of leg ICD Codes: S81.819A - Laceration without foreign body, unspecified lower leg, initial encounter Status: Acute Assessment and Plan [place]: This is a 62-year-old female who sustained a fall. She tripped over her carpet, and twisted her knee and fell. She was bleeding profusely from her left knee. A tourniquet was applied en route. INJURIES: LEFT knee lac (henrry) LEFT patella fx PMHx: CAD, CHF, DM DVT (On xarelto) Procedures: 05/15: ORIF LEFT patella Consults: Orthopedics. Case management Diet: ADA diet. Tolerating po diet. Encourage good po intake with each meal. Pulmonary: Encourage good pulmonary toileting. IS at bedside and pt encouraged to use. Rationale for use explained to patient, and verbalized understanding. Elevated BUN/creat = 51 / 2.25. Patient has a history of chronic renal insufficiency Follow-up labs in the morning. PAIN Management: [place] 7.5 mg q 3h. Morphine 4 mg q 3h. Activity: OOB. PT and OT ordered. (PWB 50lbs LLE) CKS at all times. GI prophylaxis: Pepcid BID. Bowel regimen: Colace and MOM. Lactulose. LBM: 0 DVT prophylaxis: Mechanical VTE with SCDs. Chemical management with Lovenox 30 BID SQ. DC Planning: Case management consulted for assistance with final discharge disposition. Emotional support provided to patient and family at bedside and plan of care discussed. Discussed with RN at bedside. Patient is hemodynamically stable and being managed on the med/surg floor. The trauma team will round each day, and evaluate plan of care on a daily basis. LEFT knee lac (henrry) LEFT patella fx Orthopedics consulted and assisting in management and care 05/15: ORIF LEFT patella PWB 50 lbs LLE CKS at all times. Pain management PT and OT ordered IV antibiotics per orthopedics Xarelto restarted HTN Vitals every 4 hours Resume home medications Labetalol Norvasc DM Chronic renal insufiency ADA diet Accuchecks AC HS SSI - medium Return to patient to home insulin schedule 15 units AM, 40 units PM, 40 units HS - NOVOLOG Discussed bariatric surgery with Dr. Mosher for better glucose control. Problem Qualifiers (1) Patellar fracture: Qualified Codes: S82.092A - Other fracture of left patella, initial encounter for closed fracture (2) Laceration of leg: Qualified Codes: S81.812A - Laceration without foreign body, left lower leg, initial encounter Muriel Sylvester May 16, 2017 12:15
[2017-05-16] MEDS: INSULIN ASPART 1,000 UNITS/10 ML VIAL SQ SCH ×2 (14:00→19:11)
[2017-05-16] MEDS ORDERED: PILL SPLITTER OTHER PRN (14:30)
[2017-05-16 16:00] VITALS: BP 138/42; PULSE 88; RESP 20; TEMP 98.1; O2SAT 93
[2017-05-16] MEDS: MAGNESIUM HYDROXIDE SUSP 30 ML CUP PO SCH (19:08)
[2017-05-16 20:23] VITALS: BP 162/72; PULSE 90; RESP 20; TEMP 98.3; O2SAT 94
--- NOTE | 2017-05-16 20:59 | EKG ---
Date Performed: 05/15/2017 Time Performed: 07:50:20 PTAGE: 62 years EKG: Sinus rhythm LEFT BUNDLE BRANCH BLOCK ABNORMAL ECG NO PREVIOUS TRACING DOCTOR: Sahil John Interpretating Date/Time 05/16/2017 20:52:18
[2017-05-17] MEDS: SODIUM CHLOR 0.9% 1000 ML INJ 1,000 ML IV SCH ×3 (04:45→20:45)
[2017-05-17 04:46] LABS: AUTOMATED NEUTROPHIL # 8.4 TH/MM3 (1.8-7.7); BASOPHIL # 0.1 TH/MM3 (0-0.2); BASOPHIL % 0.6 % (0.0-2.0); EOSINOPHIL # 0.3 TH/MM3 (0-0.4); EOSINOPHIL % 2.4 % (0.0-4.0); HEMATOCRIT 23.7 % (35.0-46.0); HEMO FLAGS DIFF FINAL; LYMPHOCYTE # 1.1 TH/MM3 (1.0-4.8); MEAN CELL VOLUME 89.6 FL (80.0-100.0); MEAN CORPUSCULAR HGB CONC 32.3 % (32.0-36.0); MONO % 8.8 % (0.0-8.0); NEUT % 78.2 % (16.0-70.0); PLATELET COUNT 176 TH/MM3 (150-450); RED BLOOD COUNT 2.65 MIL/MM3 (4.00-5.30); RED CELL DISTRIBUTION WIDTH 14.7 % (11.6-17.2); WHITE BLOOD COUNT 10.8 TH/MM3 (4.0-11.0)
[2017-05-17 05:08] LABS: BICARBONATE 22.7 MEQ/L (21.0-32.0); POTASSIUM 5.1 MEQ/L (3.5-5.1)
--- NOTE | 2017-05-17 06:57 | PD.ORT.PN ---
Subjective Subjective Remarks POD 2 s/p ORIF left patella s/p skin tears left leg doing well. reports pain controlled. states no complaints. out of bed with therapy. states that did well with walker. reports that she feels comfortable that she would be able to go home Objective Vitals Vital Signs Date Time Temp Pulse Resp B/P (MAP) Pulse Ox O2 Delivery O2 Flow Rate FiO2 05/16/17 21:28 18 05/16/17 20:23 98.3 90 20 162/72 (102) 94 05/16/17 16:00 98.1 88 20 138/42 (74) 93 05/16/17 12:00 96.6 86 18 149/52 (84) 98 05/16/17 08:00 98.5 87 18 149/60 (89) 97 I/O 05/16/17 05/16/17 05/16/17 05/17/17 05/17/17 05/17/17 07:00 15:00 23:00 07:00 15:00 23:00 Intake Total 1370 ml 1300 ml 1200 ml 780 ml Output Total 575 ml 1200 ml Balance 795 ml 1300 ml 1200 ml -420 ml Intake Oral 320 ml 1200 ml 780 ml IV Total 1050 ml 1300 ml Output Urine Total 575 ml 1200 ml # Voids 4 # Bowel Movements 0 0 Result Diagram: 05/17/17 0418 05/17/17 0418 Imaging Last 24 hours Impressions Knee X-Ray 05/14/17 0000 Signed Impressions: Service Date/Time: Sunday, May 14, 2017 02:27 - CONCLUSION: Acute fracture of the patella as above with considerable separation of the fracture fragments. Berny Bansal MD Objective Remarks LLE: +knee brace. NVI. dressings clean and dry. intact. good dorsiflexion. compartments soft Assessment & Plan Assessment and Plan 1) Left Patella Fx s/p ORIF - POD 2 -PWB up to 50lbs -knee brace at all times -daily dressing changes beginning POD 2. xereform/4x4 to surgical wound. Bacitracin/adaptik to skin tear -no quad sets, leg lifts, strengthening -no ROM -work with PT today. will plan for DC home with [facility] if safe with PT. -if patient doing well with PT today, ok for DC home this afternoon. ok to keep another day if needed to make sure she is safe with ambulating -f/u with [facility] or [facility] in 2 weeks Anton Yeager May 17, 2017 06:57
[2017-05-17 08:00] VITALS: BP 138/61; PULSE 91; RESP 19; TEMP 99; O2SAT 95
[2017-05-17] MEDS: INSULIN ASPART SUPPLEMENTAL SCALE SQ SCH ×4 (08:00→20:54)
[2017-05-17] MEDS: CALCIUM/VITAMIN D 250 MG/125 U TAB PO SCH ×3 (08:13→17:45)
[2017-05-17] MEDS: DOCUSATE SODIUM 50 MG/SENNA 8.6 MG TAB PO SCH ×2 (08:13→20:53)
[2017-05-17] MEDS: ACETAMINOPHEN/HYDROcodone 325 MG/7.5 MG TAB PO PRN ×3 (08:14→20:47)
[2017-05-17] MEDS: LABETALOL HCL 100 MG TAB PO SCH ×2 (08:14→22:09)
[2017-05-17] MEDS: RIVAROXABAN 20 MG TAB PO SCH (08:14)
[2017-05-17] MEDS: FAMOTIDINE 20 MG TAB PO SCH ×2 (08:14→20:50)
[2017-05-17] MEDS: INSULIN ASPART 1,000 UNITS/10 ML VIAL SQ SCH ×3 (08:15→20:40)
[2017-05-17] MEDS: LACTULOSE SYRUP 20 GM/30 ML CUP PO SCH (09:00)
[2017-05-17] MEDS: SODIUM CHLORIDE 0.9% FLUSH 5 ML FLUSH IVF SCH ×2 (09:00→20:53)
[2017-05-17 11:45] VITALS: BP 135/59; PULSE 92; RESP 19; TEMP 98.6; O2SAT 95
--- NOTE | 2017-05-17 11:52 | HHI.PR ---
Subjective Subjective Notes PTD: 4 Patient lying in bed. No distress noted. No complaints offered. Patient states she has gotten out of bed and worked with PT today. Objective Vitals/I&O Vital Signs Date Time Temp Pulse Resp B/P (MAP) Pulse Ox O2 Delivery O2 Flow Rate FiO2 05/17/17 11:45 98.6 92 19 135/59 (84) 95 05/15/17 11:08 Nasal Cannula 2 05/14/17 00:30 21 Labs Laboratory Tests Test 05/17/17 04:18 White Blood Count 10.8 Red Blood Count 2.65 Hemoglobin 7.7 Hematocrit 23.7 Mean Corpuscular Volume 89.6 Mean Corpuscular Hemoglobin 29.0 Mean Corpuscular Hemoglobin Concent 32.3 Red Cell Distribution Width 14.7 Platelet Count 176 Mean Platelet Volume 8.8 Neutrophils (%) (Auto) 78.2 Lymphocytes (%) (Auto) 10.0 Monocytes (%) (Auto) 8.8 Eosinophils (%) (Auto) 2.4 Basophils (%) (Auto) 0.6 Neutrophils # (Auto) 8.4 Lymphocytes # (Auto) 1.1 Monocytes # (Auto) 0.9 Eosinophils # (Auto) 0.3 Basophils # (Auto) 0.1 CBC Comment DIFF FINAL Differential Comment Blood Urea Nitrogen 48 Creatinine 2.02 Random Glucose 260 Calcium Level 8.7 Sodium Level 138 Potassium Level 5.1 Chloride Level 109 Carbon Dioxide Level 22.7 Anion Gap 6 Estimat Glomerular Filtration Rate 25 Narrative Exam GENERAL: This is a 62-year-old female lying in bed. No distress noted. SKIN: Warm and dry. HEAD: Atraumatic. Normocephalic. EYES: PERRLA ENT: No nasal bleeding or discharge. Mucous membranes pink and moist. NECK: Trachea midline. No JVD. CARDIOVASCULAR: Regular rate and rhythm. RESPIRATORY: No accessory muscle use. Lungs are clear to auscultation. Breath sounds equal bilaterally. No distress or dyspnea. GASTROINTESTINAL: BS + x 4 quads. Abdomen soft, non-tender, nondistended. MUSCULOSKELETAL: Extremities without cyanosis, or edema. LEFT knee dressing and CKS in place . + peripheral pulses x 4 extremities. Warm with good capillary refill and sensation. MAEW. NEUROLOGICAL: Awake and alert. Normal speech and pattern. A/P Problem List: (1) Patellar fracture ICD Codes: S82.009A - Unspecified fracture of unspecified patella, initial encounter for closed fracture Status: Acute (2) Laceration of leg ICD Codes: S81.819A - Laceration without foreign body, unspecified lower leg, initial encounter Status: Acute Assessment and Plan [place]: This is a 62-year-old female who sustained a fall. She tripped over her carpet, and twisted her knee and fell. She was bleeding profusely from her left knee. A tourniquet was applied en route. INJURIES: LEFT knee lac (henrry) LEFT patella fx PMHx: CAD, CHF, DM DVT (On xarelto) Procedures: 05/15: ORIF LEFT patella Consults: Orthopedics. Case management Diet: ADA diet. Tolerating po diet. Encourage good po intake with each meal. Pulmonary: Encourage good pulmonary toileting. IS at bedside and pt encouraged to use. Rationale for use explained to patient, and verbalized understanding. Elevated BUN/creat = 48 / 2.02. Patient has a history of chronic renal insufficiency PAIN Management: [place] 7.5 mg q 3h. Morphine 4 mg q 3h. Activity: OOB. PT and OT ordered. (PWB 50lbs LLE) CKS at all times. GI prophylaxis: Pepcid BID. Bowel regimen: Colace and MOM. Lactulose. LBM: 0 DVT prophylaxis: Mechanical VTE with SCDs. Chemical management with Lovenox 30 BID SQ. DC Planning: Case management consulted for assistance with final discharge disposition. Plan for discharge tomorrow, after an additional day of physical therapy here in the hospital. Emotional support provided to patient and family at bedside and plan of care discussed. Discussed with RN at bedside. Discussed patient condition and plan of care with collaborating trauma surgeon. Patient is hemodynamically stable and being managed on the med/surg floor. The trauma team will round each day, and evaluate plan of care on a daily basis. LEFT knee lac (henrry) LEFT patella fx Orthopedics consulted and assisting in management and care 05/15: ORIF LEFT patella PWB 50 lbs LLE CKS at all times. Pain management PT and OT ordered IV antibiotics per orthopedics Xarelto restarted HTN Vitals every 4 hours Resume home medications Labetalol Norvasc DM Chronic renal insufiency ADA diet Accuchecks AC HS SSI - medium Return to patient to home insulin schedule 15 units AM, 40 units PM, 40 units HS - NOVOLOG. Restarted per patient request , however she is refusing indication. Discussed bariatric surgery with Dr. Mosher for better glucose control. Problem Qualifiers (1) Patellar fracture: Qualified Codes: S82.092A - Other fracture of left patella, initial encounter for closed fracture (2) Laceration of leg: Qualified Codes: S81.812A - Laceration without foreign body, left lower leg, initial encounter Muriel Sylvester May 17, 2017 11:52
[2017-05-17 12:00] VITALS: BP 135/59; PULSE 92; RESP 19; TEMP 98.6; O2SAT 95
[2017-05-17 16:00] VITALS: BP 137/63; PULSE 92; RESP 20; TEMP 99.1; O2SAT 95
[2017-05-17 20:00] VITALS: BP 123/78; PULSE 94; RESP 16; TEMP 99.9; O2SAT 93
[2017-05-17] MEDS: MAGNESIUM HYDROXIDE SUSP 30 ML CUP PO SCH (20:49)
[2017-05-17 22:15] VITALS: BP 108/61; PULSE 92
[2017-05-18] VITALS: BP 134/49; PULSE 94; RESP 16; TEMP 100; O2SAT 92
[2017-05-18] MEDS: SODIUM CHLOR 0.9% 1000 ML INJ 1,000 ML IV SCH (04:45)
--- NOTE | 2017-05-18 07:07 | PD.ORT.PN ---
Subjective Subjective Remarks POD 3 s/p ORIF left patella s/p skin tears left leg doing well. reports pain controlled. states no complaints. out of bed with therapy. states that did well with walker. reports that she feels comfortable that she would be able to go home. reports that now out of bed on own Objective Vitals Vital Signs Date Time Temp Pulse Resp B/P (MAP) Pulse Ox O2 Delivery O2 Flow Rate FiO2 05/18/17 00:00 100.0 94 16 134/49 (77) 92 05/17/17 22:15 92 108/61 (77) 05/17/17 20:00 99.9 94 16 123/78 (93) 93 05/17/17 16:00 99.1 92 20 137/63 (87) 95 05/17/17 12:00 98.6 92 19 135/59 (84) 95 05/17/17 11:45 98.6 92 19 135/59 (84) 95 05/17/17 08:00 99.0 91 19 138/61 (86) 95 I/O 05/17/17 05/17/17 05/17/17 05/18/17 05/18/17 05/18/17 07:00 15:00 23:00 07:00 15:00 23:00 Intake Total 780 ml 120 ml 850 ml Output Total 1200 ml 960 ml Balance -420 ml 120 ml -110 ml Intake Oral 780 ml 120 ml 850 ml Output Urine Total 1200 ml 960 ml # Voids 1 # Bowel Movements 0 Result Diagram: 05/17/17 0418 05/17/17 0418 Imaging Last 24 hours Impressions Knee X-Ray 05/14/17 0000 Signed Impressions: Service Date/Time: Sunday, May 14, 2017 02:27 - CONCLUSION: Acute fracture of the patella as above with considerable separation of the fracture fragments. Berny Bansal MD Objective Remarks LLE: +knee brace. NVI. dressings clean and dry. intact. good dorsiflexion. compartments soft Assessment & Plan Assessment and Plan 1) Left Patella Fx s/p ORIF - POD 3 -PWB up to 50lbs -knee brace at all times -daily dressing changes with xereform/4x4 to surgical wound. Bacitracin/ adaptik to skin tear -no quad sets, leg lifts, strengthening -no ROM -work with PT today. will plan for DC home with [facility] if safe with PT. -f/u with [facility] or [facility] in 2 weeks Anton Yeager May 18, 2017 07:07
[2017-05-18 08:00] VITALS: BP 137/65; PULSE 93; RESP 20; TEMP 100; O2SAT 95
[2017-05-18] MEDS: INSULIN ASPART 1,000 UNITS/10 ML VIAL SQ SCH (08:00)
[2017-05-18] MEDS: LACTULOSE SYRUP 20 GM/30 ML CUP PO SCH ×2 (09:00→09:42)
[2017-05-18] MEDS: SODIUM CHLORIDE 0.9% FLUSH 5 ML FLUSH IVF SCH (09:00)
[2017-05-18] MEDS: INSULIN ASPART SUPPLEMENTAL SCALE SQ SCH (09:39)
[2017-05-18] MEDS: DOCUSATE SODIUM 50 MG/SENNA 8.6 MG TAB PO SCH (09:40)
[2017-05-18] MEDS: RIVAROXABAN 20 MG TAB PO SCH (09:40)
[2017-05-18] MEDS: CALCIUM/VITAMIN D 250 MG/125 U TAB PO SCH (09:41)
[2017-05-18] MEDS: LABETALOL HCL 100 MG TAB PO SCH (09:41)
[2017-05-18] MEDS: FAMOTIDINE 20 MG TAB PO SCH (09:41)
--- NOTE | 2017-05-18 12:55 | HHI.DS ---
Discharge Summary Admission Date May 14, 2017 at 02:17 Discharge Date: May 18, 2017 Admitting Diagnosis laceration, hematoma (1) Patellar fracture ICD Codes: S82.009A - Unspecified fracture of unspecified patella, initial encounter for closed fracture Diagnosis: Principal Status: Acute (2) Laceration of leg ICD Codes: S81.819A - Laceration without foreign body, unspecified lower leg, initial encounter Diagnosis: Principal Status: Acute Brief History Fall CBC/BMP: 05/17/17 0418 05/17/17 0418 Significant Findings Laboratory Tests Test 05/16/17 05:33 05/17/17 04:18 White Blood Count 15.3 TH/MM3 (4.0-11.0) Red Blood Count 2.64 MIL/MM3 (4.00-5.30) 2.65 MIL/MM3 (4.00-5.30) Hemoglobin 7.6 GM/DL (11.6-15.3) 7.7 GM/DL (11.6-15.3) Hematocrit 23.4 % (35.0-46.0) 23.7 % (35.0-46.0) Neutrophils (%) (Auto) 88.6 % (16.0-70.0) 78.2 % (16.0-70.0) Lymphocytes (%) (Auto) 4.0 % (9.0-44.0) Neutrophils # (Auto) 13.5 TH/MM3 (1.8-7.7) 8.4 TH/MM3 (1.8-7.7) Lymphocytes # (Auto) 0.6 TH/MM3 (1.0-4.8) Monocytes # (Auto) 1.0 TH/MM3 (0-0.9) Blood Urea Nitrogen 51 MG/DL (7-18) 48 MG/DL (7-18) Creatinine 2.25 MG/DL (0.50-1.00) 2.02 MG/DL (0.50-1.00) Random Glucose 260 MG/DL (74-106) 260 MG/DL (74-106) Total Protein 5.7 GM/DL (6.4-8.2) Albumin 2.4 GM/DL (3.4-5.0) Calcium Level 8.3 MG/DL (8.5-10.1) Aspartate Amino Transf (AST/SGOT) 11 U/L (15-37) Alanine Aminotransferase (ALT/SGPT) 8 U/L (10-53) Potassium Level 5.6 MEQ/L (3.5-5.1) Chloride Level 108 MEQ/L (98-107) 109 MEQ/L (98-107) Estimat Glomerular Filtration Rate 22 ML/MIN (>89) 25 ML/MIN (>89) Monocytes (%) (Auto) 8.8 % (0.0-8.0) Imaging Last Impressions Knee X-Ray 05/15/17 0000 Signed Impressions: Service Date/Time: Monday, May 15, 2017 09:24 - CONCLUSION: Status post open rigid internal fixation. Jarett Dalton MD PE at Discharge GENERAL: This is a 62-year-old female lying in bed. No distress noted. SKIN: Warm and dry. HEAD: Atraumatic. Normocephalic. EYES: PERRLA ENT: No nasal bleeding or discharge. Mucous membranes pink and moist. NECK: Trachea midline. No JVD. CARDIOVASCULAR: Regular rate and rhythm. RESPIRATORY: No accessory muscle use. Lungs are clear to auscultation. Breath sounds equal bilaterally. No distress or dyspnea. GASTROINTESTINAL: BS + x 4 quads. Abdomen soft, non-tender, nondistended. MUSCULOSKELETAL: Extremities without cyanosis, or edema. LEFT knee dressing and CKS in place . + peripheral pulses x 4 extremities. Warm with good capillary refill and sensation. MAEW. NEUROLOGICAL: Awake and alert. Normal speech and pattern. Hospital Course [place]: This is a 62-year-old female who sustained a fall. She tripped over her carpet, and twisted her knee and fell. She was bleeding profusely from her left knee. A tourniquet was applied en route. INJURIES: LEFT knee lac (henrry) LEFT patella fx PMHx: CAD, CHF, DM DVT (On xarelto) Procedures: 05/15: ORIF LEFT patella Consults: Orthopedics. Case management The patient is now tolerating a po diet. Eating and drinking well. Pain is being managed well with PO pain medications, and patient is being a provided with a script for pain meds upon discharge. (NO driving while taking narcotic pain medication enforced to patient.) We have recommended to patient to continue with stool softeners while taking narcotic pain medications to prevent constipation. Pt has been participating in PT and OT while admitted at [facility] and has been ambulating with their assistance and independently . [facility] PT has been recommended and arranged. All follow up appointments have been provided and discussed with the patient. It is recommended that the patient keeps all his follow up appointments for continued recovery. Discussed patient condition and plan of care with collaborating trauma surgeon. He is recommending discharge today. Therefore, the patient is stable to be safely discharged home from a trauma surgery standpoint. Thank you for allowing us to participate in her care. We wish Carolyn the best in her recovery. LEFT knee lac (henrry) LEFT patella fx Orthopedics consulted and assisting in management and care 05/15: ORIF LEFT patella PWB 50 lbs LLE CKS at all times. Pain management PT and OT ordered IV antibiotics per orthopedics Xarelto restarted Follow-up with PCP outpatient HTN Vitals every 4 hours Resume home medications Labetalol Norvasc Follow-up with PCP Outpatient DM Chronic renal insufiency ADA diet Accuchecks AC HS SSI - medium Return to patient to home insulin schedule 15 units AM, 40 units PM, 40 units HS - NOVOLOG. Restarted per patient request , however she is refusing indication. Discussed bariatric surgery with Dr. Mosher for better glucose control. Follow-up with PCP outpatient Pt Condition on Discharge: Stable Discharge Disposition: Disch w/ Home Health Serv Discharge Instructions DIET: Follow Instructions for: Diabetic Diet Additional Diet Instructions: 50 % WB LLE Activities you can perform: Partial Weight Bearing Activities to Avoid: Driving for 24 hrs, Concussion Sports, Contact Sports, Lifting/Bending, Weight Bearing, Prolonged Standing, Strenuous Activity Other Activity Instructions: No driving while taking narcotic pain meds. Muriel Sylvester May 18, 2017 12:55
== END 2017-05-18 12:40 | disposition home health service (06) | DRG 516 ==
LOC: NEPE 00:32 → EDBD 02:17 → NEDA 02:17 → OBSVTOIN 02:17 → N07B 04:35
PROVIDERS: ADMIT Surgery Trauma Surgery; ATTEND Surgery Trauma Surgery
PROC: 0HQLXZZ Repair Left Lower Leg Skin, External Approach (ICD-10-PCS; principal; 2017-05-14)
PROC: 0QSF04Z Reposition Left Patella with Internal Fixation Device, Open Approach (ICD-10-PCS; 2017-05-15)
DX: S82.032A Displaced transverse fracture of left patella, initial encounter for closed fracture (principal); I13.0 Hypertensive heart and chronic kidney disease with heart failure and stage 1 through stage 4 chronic kidney disease, or unspecified chronic kidney disease; E11.22 Type 2 diabetes mellitus with diabetic chronic kidney disease; I50.9 Heart failure, unspecified; Z68.42 Body mass index [BMI] 45.0-49.9, adult; S81.812A Laceration without foreign body, left lower leg, initial encounter; E66.3 Overweight; W01.0XXA Fall on same level from slipping, tripping and stumbling without subsequent striking against object, initial encounter; N18.9 Chronic kidney disease, unspecified; Z79.4 Long term (current) use of insulin; Z86.718 Personal history of other venous thrombosis and embolism; I25.10 Atherosclerotic heart disease of native coronary artery without angina pectoris
CPT/HCPCS: 12005; 73560; 73564; 76000; 80048; 80053; 82435; 82565; 82947; 82948; 84132; 84295; 84520; 85025; 85610; 85730; 86850; 86900; 86901; 93005; 94150; 96374; 96375; 96376; 99291; G0390; J0690; J1580; J1815; J2405; J3370; J7030; J7050; J7120; L1830